=== PATIENT | female | born 1990 | race Caucasian/White ===

== ENCOUNTER 2020-05-31 06:10 | Inpatient (IN) ==
[2020-05-31] MEDS ORDERED: MEPERIDINE 50 MG/1 ML VIAL IV PRN (06:28)
[2020-05-31] MEDS ORDERED: BUTORPHANOL 2 MG/ML VIAL IV PRN (06:28)
[2020-05-31] MEDS ORDERED: ONDANSETRON 4 MG/2 ML VIAL IV PRN ×2 (06:28→14:56)
[2020-05-31] MEDS: LACTATED RINGERS 1,000 ML IV SCH ×2 (06:40→16:37)
[2020-05-31 07:21] LABS: Bilirubin,Total 0.4 MG/DL (0.2-1.0); Calcium 8.3 MG/DL (8.5-10.1); Osmolality,Calculated 268.1 MOS/KG (273-304); Potassium 3.6 MMOL/L (3.5-5.1); Total Protein 6.9 G/DL (6.4-8.3)
[2020-05-31] MEDS ORDERED: OXYTOCIN/LR 20 UNIT/1,000 ML BAG IV ONE ×2 (07:26→14:56)
[2020-05-31] MEDS ORDERED: OXYTOCIN/LR 20 UNIT/1,000 ML BAG IV SCH (07:49)
[2020-05-31 09:08] LABS: Basophils % 0.2 % (0.0-0.8); Eosinophils % 0.2 % (0.00-10.9); Hematocrit 37.3 VOL% (35.7-47.0); Hemoglobin 12.4 GM/DL (12.0-16.0); Immature Granulocytes % 0.9 %; Immature Granulocytes Absolute 0.11 #; Lymphocytes % 8.1 % (21.3-54.2); Mean Corpuscular HGB Conc 33.2 GM/DL (32-36); Mean Corpuscular Volume 87.4 FL (87-102); Monocytes % 2.8 % (1.7-12.7); Neutrophils % 87.8 % (38.7-73.9); Platelet Count 324 T/CUMM (130-400); Red Blood Count 4.27 MC/CUMM (3.8-5.5); White Blood Count 12.2 T/CUMM (4-12)
[2020-05-31] MEDS ORDERED: ePHEDrine 50 MG/ML VIAL IV PRN (10:08)
[2020-05-31] MEDS ORDERED: LACTATED RINGERS 1,000 ML IV ONE (10:08)
[2020-05-31] MEDS ORDERED: PROMETHAZINE 25 MG/1 ML VIAL IM ONE (10:08)
[2020-05-31] MEDS ORDERED: FAMOTIDINE 20 MG/2 ML VIAL IV ONE (10:08)
[2020-05-31] MEDS ORDERED: hydrOXYzine HCL 25 MG/1 ML VIAL IM PRN (10:08)
[2020-05-31] MEDS ORDERED: NALOXONE 0.4 MG/ML VIAL IV PRN (10:08)
[2020-05-31] MEDS ORDERED: CITRIC ACID/SODIUM CITRATE 30 ML UDCUP PO ONE (10:08)
[2020-05-31] MEDS ORDERED: diphenhydrAMINE 50 MG/1 ML VIAL IV PRN ×2 (10:08)
[2020-05-31] MEDS ORDERED: fentaNYL 2 MCG/ROPIV 0.2% EPID 100 ML EPIDURAL SCH (10:30)
[2020-05-31] MEDS ORDERED: miSOPROStoL 200 MCG TABLET ONE (12:45)
[2020-05-31] MEDS ORDERED: TRANEXAMIC ACID 1,000 MG/10 ML VIAL ONE (12:45)
[2020-05-31] MEDS ORDERED: METHYLERGONOVINE 0.2 MG/1 ML AMP ONE (12:46)
[2020-05-31] MEDS ORDERED: CARBOPROST TROMETHAMINE 250 MCG/ML AMP IM ONE (12:46)
[2020-05-31 14:56] LABS: Cord Venous Blood HCO3 19.2 MMOL/L; Cord Venous Blood PCO2 53.9 MMHG; Cord Venous Blood PO2 24.1
[2020-05-31] MEDS ORDERED: BENZOCAINE 20%/MENTHOL 0.5% SPRAY 56 GM CAN TOP PRN (14:56)
[2020-05-31] MEDS ORDERED: ACETAMINOPHEN 325 MG TABLET PO PRN (14:56)
[2020-05-31] MEDS ORDERED: BISACODYL 10 MG SUPP RECTAL PRN (14:56)
[2020-05-31] MEDS ORDERED: MEASLES/MUMPS/RUBELLA VACCINE 0.5 ML VIAL SUBCUT ONE (14:56)
[2020-05-31] MEDS ORDERED: RHO(D) IMMUNE GLOBULIN 300 MCG SYRINGE IM ONE (14:56)
[2020-05-31] MEDS ORDERED: LANOLIN 50% CREAM 0.3 OZ TUBE TOP PRN (14:56)
[2020-05-31] MEDS ORDERED: HYDROCORTISONE 2.5% RECTAL CREAM 30 GM TUBE TOP PRN (14:56)
[2020-05-31] MEDS ORDERED: oxyCODONE/ACETAMINOPHEN 5-325 MG TABLET PO PRN ×2 (14:56)
[2020-05-31] MEDS ORDERED: DIPH/TET/ACEL PERT BOOSTER VACCINE 0.5 ML VIAL IM ONE (14:56)
[2020-05-31] MEDS ORDERED: WITCH HAZEL PADS 100/JAR TOP PRN (14:56)
[2020-05-31 17:00] LABS: Bilirubin,Urine Negative (Negative); Blood, Urine Negative (Negative); Glucose,Urine (UA) Negative (Negative); Ketones,Urine 80 mg/dL (Negative); Mucus,Urine Few /LPF (Occasional); Nitrite,Urine Negative (Negative); Protein,Urine Negative; RBC,Urine <1 /HPF (0-4); Squamous Epithelial Cell,Urine Occasional /HPF (0-10); Urine Appearance CLEAR (Clear); Urine Color Yellow (Yellow); Urine Specific Gravity 1.024 (1.001-1.035); Urine Urobilinogen < 2.0 EU/DL (0.2-1.0); WBC,Urine 1 /HPF (0-6)
[2020-05-31] MEDS: IBUPROFEN 800 MG TABLET PO PRN (17:59)
[2020-05-31] MEDS: DOCUSATE SODIUM 100 MG CAPSULE PO SCH (21:13)
[2020-06-01 05:08] LABS: Basophils % 0.3 % (0.0-0.8); Eosinophils # 0.1 10*3/uL (0.0-0.87); Eosinophils % 0.4 % (0.00-10.9); Hematocrit 33.1 VOL% (35.7-47.0); Hemoglobin 10.9 GM/DL (12.0-16.0); Immature Granulocytes % 0.4 %; Immature Granulocytes Absolute 0.05 #; Lymphocytes # 1.9 10*3/uL (1.4-4.0); Lymphocytes % 17.1 % (21.3-54.2); Mean Corpuscular HGB Conc 32.9 GM/DL (32-36); Mean Corpuscular Volume 87.8 FL (87-102); Mean Platelet Volume 9.9 FL (9.6-12.0); Monocytes % 7.9 % (1.7-12.7); Neutrophils % 73.9 % (38.7-73.9); Platelet Count 266 T/CUMM (130-400); Red Blood Count 3.77 MC/CUMM (3.8-5.5); Red Cell Distribution Width 12.2 % (9.3-17.3); White Blood Count 11.1 T/CUMM (4-12)
[2020-06-01] MEDS: IBUPROFEN 800 MG TABLET PO PRN ×2 (09:45→20:50)
[2020-06-01] MEDS: DOCUSATE SODIUM 100 MG CAPSULE PO SCH ×2 (09:45→20:50)
[2020-06-01] MEDS ORDERED: RHO(D) IMMUNE GLOBULIN 300 MCG SYRINGE IM ONE (15:46)
[2020-06-02] MEDS: DOCUSATE SODIUM 100 MG CAPSULE PO SCH (08:28)
[2020-06-02 11:10] VITALS: BP 118/69
== END 2020-06-02 13:50 | disposition home or self-care (01) | DRG 807 ==
LOC: N.LDOUT 06:10 → N.LD 06:12 → N.OB 17:49
PROVIDERS: ADMIT Specialist; ATTEND Specialist